=== PATIENT | male | born 1970 | race Caucasian/White ===

== ENCOUNTER 2021-08-31 09:42 | Inpatient (IN) | payer OTHER ==
[2021-08-31 09:50] VITALS: BP 141/68
[2021-08-31 10:24] LABS: EOS # 0.2 10*3/uL (0.0-0.4); EOS % 4.3 % (1.0-4.0); HEMATOCRIT 46.8 % (42.0-52.0); LYMPH # 1.1 10*3/uL (1.3-4.4); LYMPH % 28.2 % (27.0-41.0); MEAN CELL VOLUME 94.7 fl (80.0-94.0); MEAN CORPUSCULAR HGB 31.4 pg (27.0-31.0); MEAN CORPUSCULAR HGB CONC 33.1 g/dl (33.0-37.0); MEAN PLATELET VOLUME 9.7 fl (9.6-12.3); MONO # 0.4 10*3/uL (0.1-1.0); MONO % 9.9 % (3.0-9.0); NEUT # 2.2 10*3/uL (2.3-7.9); NEUT % 55.6 % (47.0-73.0); PLATELET COUNT AUTOMATED 139 10*3/uL (130-400); RED BLOOD COUNT 4.94 10*6/uL (4.50-5.90); RED CELL DISTRI WIDTH 14.3 % (0-14.5); WHITE BLOOD COUNT 3.9 10*3/uL (4.8-10.8)
[2021-08-31 10:38] LABS: ALKALINE PHOSPHATASE 106 U/L (45-117); BUN 17 mg/dl (7-24); CHLORIDE 103 mmol/L (98-107); CREATININE 1.12 mg/dL (0.70-1.30); LIPASE 570 U/L (73-393); POTASSIUM 3.4 mmol/L (3.5-5.1); SGOT/AST 417 IU/L (3-35); SGPT/ALT 461 U/L (12-78); SODIUM 140 mmol/L (136-145); TOTAL PROTEIN 8.4 gm/dL (6.4-8.2)
[2021-08-31 10:54] LABS: ETHYL ALCOHOL < 3.0 mg/dl (<3)
[2021-08-31 11:10] LABS: ACT PARTIAL THROMBO TIME 25.6 SECONDS (20.0-32.1); INTERNATIONAL NORM RATIO 0.9 (2.0-3.5)
[2021-08-31 12:26] LABS: BILIRUBIN 1+ (Negative); BLOOD Negative (Negative); CLARITY Clear (Clear); COLOR Dark Yellow (Yellow); GLUCOSE Negative (Negative); KETONE Trace (Negative); LEUKO ESTERASE Trace (Negative); NITRITE Negative (Negative); PH 5.5 (4.5-8.0); SPECIFIC GRAVITY >= 1.030 (1.001-1.030)
[2021-08-31 12:31] LABS: URINE AMPHETAMINES < 1000 (1000ng/ml); URINE BARBITURATES < 200 (200ng/ml); URINE BENZODIAZEPINES < 200 (200ng/ml); URINE CANNABINOIDS (THC) < 50 (50ng/ml); URINE COCAINE < 300 (300ng/ml); URINE METHADONE < 300 (300ng/ml); URINE OPIATES < 300 (300ng/ml)
[2021-08-31 12:32] LABS: URINE PHENCYCLIDINE < 25 (25ng/ml)
[2021-08-31 12:39] LABS: BACTERIA 2+; MUCOUS 3+
[2021-08-31 16:00] VITALS: BP 130/60
[2021-08-31 20:00] VITALS: BP 112/69
[2021-09-01] VITALS: BP 115/76
[2021-09-01 06:07] LABS: ALKALINE PHOSPHATASE 82 U/L (45-117); BUN 16 mg/dl (7-24); CHLORIDE 105 mmol/L (98-107); CREATININE 1.02 mg/dL (0.70-1.30); LIPASE 684 U/L (73-393); POTASSIUM 3.7 mmol/L (3.5-5.1); SGOT/AST 226 IU/L (3-35); SGPT/ALT 349 U/L (12-78); SODIUM 141 mmol/L (136-145); TOTAL PROTEIN 6.7 gm/dL (6.4-8.2)
[2021-09-01 08:00] VITALS: BP 117/75
[2021-09-01 12:00] VITALS: BP 122/74
[2021-09-01 16:00] VITALS: BP 150/64
[2021-09-02] VITALS: BP 126/84
[2021-09-02 05:06] LABS: HBSAG Negative (Negative); HEP B CORE AB, IGM Negative (Negative); HEPATITIS A AB IGM Negative (Negative); HEPATITIS C ANTIBODY <0.1 (0.0-0.9)
[2021-09-02 08:00] VITALS: BP 122/69
[2021-09-02] MEDS ORDERED: THERA TABLET400 MCG PO (11:41)
[2021-09-02] MEDS ORDERED: NATURE'S BLEND F1 MG PO (11:41)
[2021-09-02] MEDS ORDERED: VITAMIN B-1100 M1 PO (11:41)
[2021-09-02 11:57] VITALS: BP 135/98
[2021-09-02 16:00] VITALS: BP 151/95
[2021-09-02 20:00] VITALS: BP 155/99
[2021-09-03] VITALS: BP 140/95
[2021-09-03 08:00] VITALS: BP 130/88
== END 2021-09-03 11:15 | disposition home or self-care (01) | DRG 775 ==
LOC: ED 09:42 → EDHOLD 12:45 → 4E 12:45
PROVIDERS: Emergency Medicine; Registered Nurse; ADMIT Internal Medicine; ATTEND Internal Medicine
DX: F10.239 Alcohol dependence with withdrawal, unspecified (principal); R80.9 Proteinuria, unspecified; E87.6 Hypokalemia; R74.01 Elevation of levels of liver transaminase levels; R73.9 Hyperglycemia, unspecified; R00.0 Tachycardia, unspecified; K76.0 Fatty (change of) liver, not elsewhere classified

== ENCOUNTER 2021-09-19 17:21 | Emergency (ER) | payer OTHER ==
[~2021-09-19 17:21] MED LIST: NATURE'S BLEND F1 MG PO; THERA TABLET400 MCG PO; VITAMIN B-1100 M1 PO
[2021-09-19 17:46] LABS: BASO # 0.1 10*3/uL (0.0-0.1); BASO % 0.9 % (0.0-1.0); EOS # 0.3 10*3/uL (0.0-0.4); EOS % 4.3 % (1.0-4.0); HEMATOCRIT 46.2 % (42.0-52.0); LYMPH # 2.9 10*3/uL (1.3-4.4); LYMPH % 49.1 % (27.0-41.0); MEAN CELL VOLUME 91.8 fl (80.0-94.0); MEAN CORPUSCULAR HGB CONC 33.8 g/dl (33.0-37.0); MEAN PLATELET VOLUME 8.9 fl (9.6-12.3); MONO # 0.4 10*3/uL (0.1-1.0); MONO % 6.9 % (3.0-9.0); NEUT # 2.2 10*3/uL (2.3-7.9); NEUT % 38.3 % (47.0-73.0); PLATELET COUNT AUTOMATED 241 10*3/uL (130-400); RED BLOOD COUNT 5.03 10*6/uL (4.50-5.90); RED CELL DISTRI WIDTH 14.4 % (0-14.5); WHITE BLOOD COUNT 5.8 10*3/uL (4.8-10.8)
[2021-09-19 17:56] LABS: ACT PARTIAL THROMBO TIME 27.1 SECONDS (20.0-32.1); INTERNATIONAL NORM RATIO 0.9 (2.0-3.5)
[2021-09-19 18:00] LABS: ALKALINE PHOSPHATASE 90 U/L (45-117); BUN 10 mg/dl (7-24); CHLORIDE 103 mmol/L (98-107); CREATININE 1.01 mg/dL (0.70-1.30); POTASSIUM 3.8 mmol/L (3.5-5.1); SGOT/AST 63 IU/L (3-35); SGPT/ALT 55 U/L (12-78); SODIUM 140 mmol/L (136-145); TOTAL PROTEIN 7.6 gm/dL (6.4-8.2)
== END 2021-09-19 20:03 | disposition left against medical advice (07) ==
LOC: ED 17:21
PROVIDERS: Emergency Medicine
DX: R41.82 Altered mental status, unspecified (principal)